=== PATIENT | female | born 1980 | race Caucasian/White ===

== ENCOUNTER 2024-10-09 10:15 | Emergency (ER) | payer BC ==
[~2024-10-09] VITALS: Ht 160 cm; Wt 86.2 kg
[2024-10-09] MEDS ORDERED: LISI40TA13 PO (11:25)
[2024-10-09] MEDS ORDERED: IBUP-1490 PO (11:25)
[2024-10-09] MEDS ORDERED: CLON0.1T PO (11:25)
[2024-10-09 12:10] VITALS: BP 138/87; TEMP 98.6; O2SAT 99
== END 2024-10-09 12:12 | disposition home or self-care (01) ==
LOC: ER 10:20
DX: I10 Essential (primary) hypertension (principal); Z76.0 Encounter for issue of repeat prescription; Z88.0 Allergy status to penicillin